=== PATIENT | male | born 1985 | race Hispanic/Latino ===

== ENCOUNTER 2018-05-14 17:24 | Inpatient (IN) | payer MEDICAID ==
[2018-05-14] MEDS ORDERED: Sodium Chloride 0.9% 1,000 ML IV STA ×2 (18:31)
--- NOTE | 2018-05-14 18:42 | ED PDOC ---
History of Present Illness History of Present Illness: 33 y/o male with a PMHx of HTN presents to the ED for evaluation of worsening flu-like symptoms, onset three weeks ago. Patient reports of becoming increasingly weak and vomiting for the past two weeks. Patient states he has been unable to keep down food or liquid. Patient reports despite not eating and drinking, he has had increased urination. Of note, patient reports of having a family history of DM. PMD: Manjinder Guan HPI: Influenza Time Seen by Provider: 05/14/18 18:04 Chief Complaint: GI Problem Chief Complaint (Provider): GI Problem History Per: Patient Onset/Duration Of Symptoms: Days Symptoms include: vomiting Past Medical History Reviewed: Historical Data, Nursing Documentation, Vital Signs Vital Signs: Last Vital Signs Temp 97.5 F L 05/14/18 17:32 Pulse 109 H 05/14/18 18:29 Resp 18 05/14/18 17:32 BP 136/84 05/14/18 18:29 Pulse Ox 95 05/14/18 17:32 - Medical History PMH: Anxiety, HTN, Hyperlipidemia - Surgical History Surgical History: No Surg Hx - Family History Family History: States: Diabetes - Home Medications Home Medications: Ambulatory Orders Medication Instructions Recorded Escitalopram [Lexapro] 20 mg PO DAILY 05/14/18 Lisinopril [Zestril] 20 mg PO DAILY 05/14/18 - Allergies Allergies/Adverse Reactions: Allergies Allergy/AdvReac Type Severity Reaction Status Date / Time No Known Allergies Allergy Verified 05/14/18 17:30 Review of Systems ROS Statement: Except As Marked, All Systems Reviewed And Found Negative Constitutional: Positive for: Weakness Gastrointestinal: Positive for: Vomiting Genitourinary Male: Positive for: Frequency Physical Exam - Reviewed Nursing Documentation Reviewed: Yes Vital Signs Reviewed: Yes - Physical Exam Appears: Negative for: Well (weak) Head Exam: Positive for: ATRAUMATIC, NORMOCEPHALIC Skin: Positive for: Diaphoresis Eye Exam: Positive for: Other (sunken eyes) ENT: Positive for: Other (moist mucous membranes) Neck: Positive for: Normal Gastrointestinal/Abdominal: Positive for: Soft, Tenderness (diffusely mild tenderness ) Extremity: Positive for: Normal ROM. Negative for: Deformity Neurological/Psych: Positive for: Awake, Alert Medical Decision Making Medical Decision Making: Time: 1830 A/P: Workup for new onset DM with dehydration vs. underlying infection. -- Labs including Beta Hydoxybutyrate and Hemoglobin A1C -- CXR and IV fluids ordered -- Consider insulin once labs result -- Reassess patient -- VBG -- EKG -- Beta Hydoxybutyrate -- CMP -- Hemoglobin A1C -- CBC with Differentials -- Sodium Chloride IV 0.9% 1000 mls/hr -- Sodium Chloride IV 0.9% 1000 mls/hr -- Influenza A B -- Urinalysis -- Finger stick of 500 noted at triage. Pt admitted for new onset DM with DKA. Pt given 2 L of fluid. Insulin bolus, started on insulin drip. Admitted to ICU. Scribe Attestation: Documented by Kirstie Rocha, acting as a scribe Tolu Mccartney MD. Provider Scribe Attestation: All medical record entries made by the Scribe were at my direction and person ally dictated by me. I have reviewed the chart and agree that the record accurately reflects my personal performance of the history, physical exam, medical decision making, and the department course for this patient. I have also personally directed, reviewed, and agree with the discharge instructions and disposition. - Laboratory Results Result Diagrams: 05/15/18 04:45 05/15/18 10:40 - ECG O2 Sat by Pulse Oximetry: 95 Disposition - Clinical Impression Clinical Impression: DKA (diabetic ketoacidoses), Diabetes mellitus, new onset - Disposition Disposition Time: 19:58 Condition: FAIR
[2018-05-14 18:46] LABS: VENOUS BLOOD GAS BASE EXCESS -2.9 mmol/L (0.0-2.0); VENOUS BLOOD GAS PCO2 33 mmHg (40-60); VENOUS BLOOD GAS PO2 49 mm/Hg (30-55); VENOUS BLOOD PH 7.41 (7.32-7.43)
[2018-05-14 18:47] LABS: BASO # 0.1 K/uL (0.0-0.2); BASO % 0.8 % (0.0-2.0); EOS % 0.3 % (0.0-4.0); HEMOGLOBIN 16.8 g/dL (12.0-18.0); LYMPH # 1.6 K/uL (1.0-4.3); LYMPH % 15.5 % (20.0-40.0); MEAN CELL VOLUME 79.5 fl (80.0-94.0); MEAN CORPUSCULAR HEMOGLOBIN 27.6 pg (27.0-31.0); MEAN CORPUSCULAR HGB CONC 34.8 g/dL (33.0-37.0); MONO # 0.7 K/uL (0.0-0.8); MONO % 7.2 % (0.0-10.0); NEUT # 7.9 K/uL (1.8-7.0); NEUT % 76.2 % (50.0-75.0); RBC 6.07 Mil/uL (4.40-5.90); RED CELL DISTRIBUTION WIDTH 13.3 % (11.5-14.5); WHITE BLOOD COUNT 10.4 K/uL (4.8-10.8)
[2018-05-14 19:15] LABS: ALB/GLOB RATIO 1.3 (1.0-2.1); ALBUMIN 5.1 g/dL (3.5-5.0); ALT/SGPT 69 U/L (21-72); AST/SGOT 29 U/L (17-59); BLOOD UREA NITROGEN 17 mg/dl (9-20); CALCIUM 10.3 mg/dL (8.4-10.2); GFR NON-AFRICAN AMERICAN > 60
[2018-05-14] MEDS ORDERED: Insulin Regular 100 units/ml SC STA (19:17)
[2018-05-14] MEDS ORDERED: Dextrose 50% SYRINGE Inj (50 ml) IV PRN (19:25)
[2018-05-14] MEDS ORDERED: Glucagon Recombinant 1 mg Inj IM PRN (19:25)
--- NOTE | 2018-05-14 20:41 | CP.PCM.CON ---
History of Present Illness - History of Present Illness History of Present Illness: CC/Reason for HPI: DKA HPI: This is a 33 male with MHx significant for HTN and ?psoriasis who comes in with DKA. Patient states that he has no prior Dx of DM2, but states that for the past 2 weeks he has had polydipsia, polyuria, and nocturia. He also c/o some dry mouth. Denies any f/c/v/d. Denies CP/SOB. Does have some nausea. Patient also notes that he has some inflammation on b/l shins due to psoriasis. ROS: 14 systems reviewed, negative other than HPI MHx: HTN, ?psoriasis, ?GERD SHx: None Allergies: NKDA Medications: per med rec Family Hx: Extensive Hx of DM2 within family, HLD Past Patient History - Past Social History Smoking Status: Smoker Currrent Status Unknown - CARDIAC Hx Hypertension: Yes - PSYCHIATRIC Hx Anxiety: Yes Meds Allergies/Adverse Reactions: Allergies Allergy/AdvReac Type Severity Reaction Status Date / Time No Known Allergies Allergy Verified 05/14/18 17:30 - Medications Medications: Current Medications Dextrose (Dextrose 50% Inj) 0 ml IV STAT PRN; Protocol PRN Reason: Hypoglycemia Protocol Dextrose (Glutose 15) 0 gm PO ONCE PRN; Protocol PRN Reason: Hypoglycemia Protocol Enoxaparin Sodium (Lovenox) 40 mg SC DAILY DEION; Protocol Glucagon (Glucagen Diagnostic Kit) 0 mg IM STAT PRN; Protocol PRN Reason: Hypoglycemia Protocol Insulin Human Regular 100 (units/ Sodium Chloride) 101 mls @ 10.1 mls/hr IV .Q10H DEION; Protocol Lactated Ringer's (Lactated Ringer's) 1,000 mls @ 200 mls/hr IV .Q5H DEION Stop: 05/15/18 05:59 Physical Exam - Constitutional Appears: No Acute Distress - Head Exam Head Exam: ATRAUMATIC, NORMOCEPHALIC - Eye Exam Eye Exam: EOMI - ENT Exam ENT Exam: Mucous Membranes Dry - Neck Exam Neck exam: Positive for: Full Rom - Respiratory Exam Respiratory Exam: Clear to Auscultation Bilateral, NORMAL BREATHING PATTERN - Cardiovascular Exam Cardiovascular Exam: Tachycardia, +S1, +S2 - GI/Abdominal Exam GI & Abdominal Exam: Normal Bowel Sounds, Soft - Extremities Exam Extremities exam: Positive for: full ROM, normal inspection - Neurological Exam Neurological exam: Alert, CN II-XII Intact, Oriented x3 - Skin Additional comments: b/l landers psoriatic plaques Results - Vital Signs Recent Vital Signs: Last Vital Signs Temp 97.5 F L 05/14/18 17:32 Pulse 117 H 05/14/18 19:46 Resp 16 05/14/18 19:46 BP 150/101 H 05/14/18 19:46 Pulse Ox 96 05/14/18 19:46 - Labs Result Diagrams: 05/14/18 18:25 05/14/18 18:25 Labs: Laboratory Results - last 24 hr 05/14/18 05/14/18 05/14/18 17:48 18:25 18:25 WBC 10.4 RBC 6.07 H Hgb 16.8 Hct 48.3 MCV 79.5 L MCH 27.6 MCHC 34.8 RDW 13.3 Plt Count 278 MPV 11.0 Neut % (Auto) 76.2 H Lymph % (Auto) 15.5 L [place] % (Auto) 7.2 Eos % (Auto) 0.3 Baso % (Auto) 0.8 Neut # (Auto) 7.9 H Lymph # (Auto) 1.6 [place] # (Auto) 0.7 Eos # (Auto) 0.0 Baso # (Auto) 0.1 pO2 VBG pH VBG pCO2 VBG HCO3 VBG Total CO2 VBG O2 Sat (Calc) VBG Base Excess VBG Potassium Glucose Lactate FiO2 Crit Value Called To Crit Value Called By Crit Value Read Back Blood Gas Notified Time Sodium 134 Potassium 4.6 Chloride 91 L Carbon Dioxide 19 L Anion Gap 29 H BUN 17 Creatinine 1.1 Est GFR ( Amer) > 60 Est GFR (Non-Af Amer) > 60 POC Glucose (mg/dL) > 500 H* Random Glucose 628 H* Calcium 10.3 H Total Bilirubin 1.3 AST 29 ALT 69 Alkaline Phosphatase 169 H Total Protein 9.1 H Albumin 5.1 H Globulin 4.0 H Albumin/Globulin Ratio 1.3 Venous Blood Potassium Influenza Typ A,B (EIA) 05/14/18 05/14/18 05/14/18 18:25 18:37 20:05 WBC RBC Hgb Hct MCV MCH MCHC RDW Plt Count MPV Neut % (Auto) Lymph % (Auto) [place] % (Auto) Eos % (Auto) Baso % (Auto) Neut # (Auto) Lymph # (Auto) [place] # (Auto) Eos # (Auto) Baso # (Auto) pO2 49 VBG pH 7.41 VBG pCO2 33 L VBG HCO3 22.3 VBG Total CO2 21.9 L VBG O2 Sat (Calc) 91.3 H VBG Base Excess -2.9 L VBG Potassium 4.8 Glucose > 750 H* Lactate 3.0 H FiO2 21.0 Crit Value Called To jose Mccartney md Crit Value Called By Ani subramanian Crit Value Read Back Y Blood Gas Notified Time 184 Sodium 132.0 Potassium Chloride 90.0 L Carbon Dioxide Anion Gap BUN Creatinine Est GFR ( Amer) Est GFR (Non-Af Amer) POC Glucose (mg/dL) 486 H* Random Glucose Calcium Total Bilirubin AST ALT Alkaline Phosphatase Total Protein Albumin Globulin Albumin/Globulin Ratio Venous Blood Potassium 4.8 Influenza Typ A,B (EIA) Negative for flu a/b Assessment & Plan (1) DKA (diabetic ketoacidoses) Assessment and Plan: 33 y/o male with new onset DM2 and DKA. -Admit to ICU for insulin gtt -Q1H accuchecks -BMP at 10 PM, next at 4 AM -A1C in AM -insulin gtt -IVF 200 cc/hr (LR for now) Status: Acute (2) Diabetes mellitus, new onset Status: Acute (3) HTN (hypertension) Assessment and Plan: Stable, continue home BP medications Status: Acute (4) Psoriasis Assessment and Plan: b/l landers psoriasis -moderate potency steroid to start with bid Status: Acute (5) DVT prophylaxis Assessment and Plan: SQ Lovenox Status: Acute
[2018-05-14 21:17] LABS: URINE BILIRUBIN NEGATIVE (NEGATIVE); URINE BLOOD NEGATIVE (NEGATIVE); URINE CLARITY CLEAR (Clear); URINE COLOR YELLOW (YELLOW); URINE GLUCOSE (UA) >=500 mg/dL (NEGATIVE); URINE LEUKOCYTE ESTERASE NEG Leu/uL (Negative); URINE PROTEIN 30 mg/dL (NEGATIVE); URINE UROBILINOGEN 0.2-1.0 mg/dL (0.2-1.0)
[2018-05-14] MEDS: Lactated Ringer's 1,000 ML IV SCH (21:54)
[2018-05-14 22:48] LABS: BLOOD UREA NITROGEN 14 mg/dl (9-20); CALCIUM 9.7 mg/dL (8.4-10.2); GFR NON-AFRICAN AMERICAN > 60
[2018-05-15] MEDS: Lactated Ringer's 1,000 ML IV SCH (02:05)
[2018-05-15 05:25] LABS: HEMOGLOBIN 14.7 g/dL (12.0-18.0); MEAN CELL VOLUME 79.6 fl (80.0-94.0); MEAN CORPUSCULAR HEMOGLOBIN 27.3 pg (27.0-31.0); MEAN CORPUSCULAR HGB CONC 34.3 g/dL (33.0-37.0); RBC 5.37 Mil/uL (4.40-5.90); RED CELL DISTRIBUTION WIDTH 13.8 % (11.5-14.5); WHITE BLOOD COUNT 11.2 K/uL (4.8-10.8)
[2018-05-15 05:38] LABS: ALB/GLOB RATIO 1.3 (1.0-2.1); ALBUMIN 4.2 g/dL (3.5-5.0); ALT/SGPT 51 U/L (21-72); AST/SGOT 25 U/L (17-59); BLOOD UREA NITROGEN 12 mg/dl (9-20); CALCIUM 9.6 mg/dL (8.4-10.2); GFR NON-AFRICAN AMERICAN > 60
[2018-05-15] MEDS ORDERED: Potassium Chloride 20 mEq ER Tab PO ONE (06:25)
[2018-05-15] MEDS ORDERED: Lactated Ringer's 1,000 ML IV SCH (06:30)
[2018-05-15] MEDS ORDERED: Dextrose 5%/0.45% NS 1,000 ML IV SCH (07:00)
[2018-05-15] MEDS: Enoxaparin 40 mg Syringe SC SCH (08:09)
[2018-05-15] MEDS: Betamethasone Dip 0.05% 15 GM TUBE TOP SCH ×2 (09:00→17:07)
--- NOTE | 2018-05-15 09:03 | CARD ---
APPROVED REPORT Date of service: 05/14/2018 EKG Measurement Heart [id number] <Conclusion> Sinus tachycardia Left axis deviation Abnormal ECG
[2018-05-15 10:54] LABS: VENOUS BLOOD GAS BASE EXCESS 1.1 mmol/L (0.0-2.0); VENOUS BLOOD GAS PCO2 37 mmHg (40-60); VENOUS BLOOD GAS PO2 51 mm/Hg (30-55); VENOUS BLOOD PH 7.44 (7.32-7.43)
[2018-05-15 12:08] LABS: ALB/GLOB RATIO 1.2 (1.0-2.1); ALBUMIN 3.8 g/dL (3.5-5.0); ALT/SGPT 56 U/L (21-72); AST/SGOT 38 U/L (17-59); BLOOD UREA NITROGEN 14 mg/dl (9-20); CALCIUM 9.1 mg/dL (8.4-10.2); GFR NON-AFRICAN AMERICAN > 60
--- NOTE | 2018-05-15 13:04 | CP.CCUPN ---
CCU Subjective - Physician Review Events Since Last Encounter (Free Text): 05/15/18 12:45 The patient was Seen/interviewed and examined by me at the bedside during ICU round, Medical records reviewed and Management issues were discussed and formulated with the house staff. Events reviewed Patient is a 33 years old male with past medical history of hypertension, psoriasis, and GERD who was admitted to the intensive care unit last night for management of diabetic ketoacidosis This morning he is alert awake oriented x3, remains on insulin drip Comfortable, NAD Repeat labs showed that no anion gap pH and bicarb within normal limits Starting the patient in metformin 500 mg twice daily and moderate carbohydrate diet Continue IV fluid was potassium supplement Hemoglobin A1c ordered CCU Objective - Vital Signs / Intake & Output Vital Signs (Last 4 hours): Vital Signs Temp Pulse Resp BP Pulse Ox 05/15/18 12:00 98.3 F 88 17 121/75 97 05/15/18 10:00 90 14 137/71 97 Intake and Output (Last 8hrs): Intake & Output 05/14/18 05/15/18 05/15/18 22:59 06:59 14:59 Intake Total 1999 1630.8 1015 Output Total 600 350 100 Balance 1400 1280.8 915 Weight 270 lb 274 lb Intake: IV 1999 1630.8 1015 Output: Urine 600 350 100 Urine, Voided 600 350 100 Other: # Voids Urine, Voided 2 1 - Physical Exam Head: Positive for: Atraumatic Pupils: Positive for: PERRL Extroacular Muscles: Positive for: EOMI Conjunctiva: Positive for: Normal Mouth: Positive for: Moist Mucous Membranes Nose (Internal): Positive for: Normal Inspection Neck: Positive for: Normal Range of Motion, Trachea Midline. Negative for: Meningeal Signs, MIDLINE TENDERNESS, Paraspinal Tenderness, JVD, Lymphadenopathy, Bruit, Other Respiratory/Chest: Positive for: Clear to Auscultation, Good Air Exchange. Negative for: Respiratory Distress, Accessory Muscle Use, Rales, Rhonchi Cardiovascular: Positive for: Regular Rate and Rhythm, Normal S1, S2. Negative for: Murmurs Abdomen: Positive for: Normal Bowel Sounds. Negative for: Tenderness, Distention Neurological: Positive for: GCS=15, CN II-XII Intact, Speech Normal Psychiatric: Positive for: Alert, Oriented x 3, Normal Insight - Medications Active Medications: Active Medications Generic Name Dose Route Start Last Admin Trade Name Freq PRN Reason Stop Dose Admin Betamethasone Dipropionate 1 applic 05/15/18 09:00 Diprolene TOP BID DEION Dextrose 0 ml 05/14/18 19:25 Dextrose 50% Inj IV STAT PRN Hypoglycemia Protocol Protocol Dextrose 0 gm 05/14/18 19:25 Glutose 15 PO ONCE PRN Hypoglycemia Protocol Protocol Enoxaparin Sodium 40 mg 05/15/18 09:00 05/15/18 08:09 Lovenox SC 40 mg DAILY DEION Administration Protocol Glucagon 0 mg 05/14/18 19:25 Glucagen Diagnostic Kit IM STAT PRN Hypoglycemia Protocol Protocol Insulin Human Regular 100 101 mls @ 10.1 mls/hr 05/14/18 19:30 05/15/18 12:05 units/ Sodium Chloride IV 5 units/hr .Q10H DEION 5.05 mls/hr Titration Protocol 10 UNITS/HR Potassium Chloride/Sodium Chloride 1,000 mls @ 100 mls/hr 05/15/18 12:30 Potassium Chl 20 Meq In Ns IV 05/16/18 12:28 .Q10H DEION Metformin HCl 500 mg 05/15/18 17:00 Glucophage PO BIDWM DEION - Patient Studies Lab Studies: Lab Studies 05/15/18 05/15/18 05/15/18 Range/Units 10:40 10:29 06:56 WBC (4.8-10.8) K/uL RBC (4.40-5.90) Mil/uL Hgb (12.0-18.0) g/dL Hct (35.0-51.0) % MCV (80.0-94.0) fl MCH (27.0-31.0) pg MCHC (33.0-37.0) g/dL RDW (11.5-14.5) % Plt Count (130-400) K/uL MPV (7.2-11.7) fl Neut % (Auto) (50.0-75.0) % Lymph % (Auto) (20.0-40.0) % [place] % (Auto) (0.0-10.0) % Eos % (Auto) (0.0-4.0) % Baso % (Auto) (0.0-2.0) % Neut # (Auto) (1.8-7.0) K/uL Lymph # (Auto) (1.0-4.3) K/uL [place] # (Auto) (0.0-0.8) K/uL Eos # (Auto) (0.0-0.7) K/uL Baso # (Auto) (0.0-0.2) K/uL pO2 51 (30-55) mm/Hg VBG pH 7.44 H (7.32-7.43) VBG pCO2 37 L (40-60) mmHg VBG HCO3 25.5 mmol/L VBG Total CO2 26.2 (22-28) mmol/L VBG O2 Sat (Calc) 92.0 H (40-65) % VBG Base Excess 1.1 (0.0-2.0) mmol/L VBG Potassium 3.6 (3.6-5.2) mmol/L Glucose 348 H (75-110) mg/dL Lactate 1.2 (0.7-2.1) mmol/L FiO2 21.0 % Crit Value Called To Crit Value Called By Crit Value Read Back Blood Gas Notified Time Sodium 137 137.0 (132-148) mmol/l Potassium 3.6 (3.6-5.0) MMOL/L Chloride 104 104.0 (98-107) mmol/L Carbon Dioxide 24 (22-30) mmol/L Anion Gap 13 (10-20) BUN 14 (9-20) mg/dl Creatinine 0.8 (0.8-1.5) mg/dl Est GFR ( Amer) > 60 Est GFR (Non-Af Amer) > 60 POC Glucose (mg/dL) 195 H (65-110) mg/dL Random Glucose 333 H (75-110) mg/dL Calcium 9.1 (8.4-10.2) mg/dL Phosphorus 3.1 (2.5-4.5) mg/dl Magnesium 2.1 (1.6-2.3) MG/DL Total Bilirubin 0.8 (0.2-1.3) mg/dl AST 38 (17-59) U/L ALT 56 (21-72) U/L Alkaline Phosphatase 87 (38-126) U/L Total Protein 6.9 (6.3-8.2) G/DL Albumin 3.8 (3.5-5.0) g/dL Globulin 3.1 (2.2-3.9) gm/dL Albumin/Globulin Ratio 1.2 (1.0-2.1) Venous Blood Potassium 3.6 (3.6-5.2) mmol/L Urine Color (YELLOW) Urine Clarity (Clear) Urine pH (5.0-8.0) Ur Specific [place] (1.003-1.030) Urine Protein (NEGATIVE) mg/dL Urine Glucose (UA) (NEGATIVE) mg/dL Urine Ketones (NEGATIVE) mg/dL Urine Blood (NEGATIVE) Urine Nitrate (NEGATIVE) Urine Bilirubin (NEGATIVE) Urine Urobilinogen (0.2-1.0) mg/dL Ur Leukocyte Esterase (Negative) Walter/uL Urine RBC (Auto) (0-3) /hpf Urine Microscopic WBC (0-5) /hpf Influenza Typ A,B (EIA) (NEGATIVE) 05/15/18 05/15/18 05/15/18 Range/Units 06:04 05:01 04:45 WBC (4.8-10.8) K/uL RBC (4.40-5.90) Mil/uL Hgb (12.0-18.0) g/dL Hct (35.0-51.0) % MCV (80.0-94.0) fl MCH (27.0-31.0) pg MCHC (33.0-37.0) g/dL RDW (11.5-14.5) % Plt Count (130-400) K/uL MPV (7.2-11.7) fl Neut % (Auto) (50.0-75.0) % Lymph % (Auto) (20.0-40.0) % [place] % (Auto) (0.0-10.0) % Eos % (Auto) (0.0-4.0) % Baso % (Auto) (0.0-2.0) % Neut # (Auto) (1.8-7.0) K/uL Lymph # (Auto) (1.0-4.3) K/uL [place] # (Auto) (0.0-0.8) K/uL Eos # (Auto) (0.0-0.7) K/uL Baso # (Auto) (0.0-0.2) K/uL pO2 (30-55) mm/Hg VBG pH (7.32-7.43) VBG pCO2 (40-60) mmHg VBG HCO3 mmol/L VBG Total CO2 (22-28) mmol/L VBG O2 Sat (Calc) (40-65) % VBG Base Excess (0.0-2.0) mmol/L VBG Potassium (3.6-5.2) mmol/L Glucose (75-110) mg/dL Lactate (0.7-2.1) mmol/L FiO2 % Crit Value Called To Crit Value Called By Crit Value Read Back Blood Gas Notified Time Sodium 140 (132-148) mmol/l Potassium 3.4 L (3.6-5.0) MMOL/L Chloride 105 (98-107) mmol/L Carbon Dioxide 26 (22-30) mmol/L Anion Gap 12 (10-20) BUN 12 (9-20) mg/dl Creatinine 0.9 (0.8-1.5) mg/dl Est GFR ( Amer) > 60 Est GFR (Non-Af Amer) > 60 POC Glucose (mg/dL) 210 H 194 H (65-110) mg/dL Random Glucose 204 H (75-110) mg/dL Calcium 9.6 (8.4-10.2) mg/dL Phosphorus (2.5-4.5) mg/dl Magnesium (1.6-2.3) MG/DL Total Bilirubin 0.8 (0.2-1.3) mg/dl AST 25 (17-59) U/L ALT 51 (21-72) U/L Alkaline Phosphatase 95 (38-126) U/L Total Protein 7.4 (6.3-8.2) G/DL Albumin 4.2 (3.5-5.0) g/dL Globulin 3.3 (2.2-3.9) gm/dL Albumin/Globulin Ratio 1.3 (1.0-2.1) Venous Blood Potassium (3.6-5.2) mmol/L Urine Color (YELLOW) Urine Clarity (Clear) Urine pH (5.0-8.0) Ur Specific [place] (1.003-1.030) Urine Protein (NEGATIVE) mg/dL Urine Glucose (UA) (NEGATIVE) mg/dL Urine Ketones (NEGATIVE) mg/dL Urine Blood (NEGATIVE) Urine Nitrate (NEGATIVE) Urine Bilirubin (NEGATIVE) Urine Urobilinogen (0.2-1.0) mg/dL Ur Leukocyte Esterase (Negative) Walter/uL Urine RBC (Auto) (0-3) /hpf Urine Microscopic WBC (0-5) /hpf Influenza Typ A,B (EIA) (NEGATIVE) 05/15/18 05/15/18 05/15/18 Range/Units 04:45 04:12 03:04 WBC 11.2 H (4.8-10.8) K/uL RBC 5.37 (4.40-5.90) Mil/uL Hgb 14.7 D (12.0-18.0) g/dL Hct 42.7 (35.0-51.0) % MCV 79.6 L (80.0-94.0) fl MCH 27.3 (27.0-31.0) pg MCHC 34.3 (33.0-37.0) g/dL RDW 13.8 (11.5-14.5) % Plt Count 252 (130-400) K/uL MPV (7.2-11.7) fl Neut % (Auto) (50.0-75.0) % Lymph % (Auto) (20.0-40.0) % [place] % (Auto) (0.0-10.0) % Eos % (Auto) (0.0-4.0) % Baso % (Auto) (0.0-2.0) % Neut # (Auto) (1.8-7.0) K/uL Lymph # (Auto) (1.0-4.3) K/uL [place] # (Auto) (0.0-0.8) K/uL Eos # (Auto) (0.0-0.7) K/uL Baso # (Auto) (0.0-0.2) K/uL pO2 (30-55) mm/Hg VBG pH (7.32-7.43) VBG pCO2 (40-60) mmHg VBG HCO3 mmol/L VBG Total CO2 (22-28) mmol/L VBG O2 Sat (Calc) (40-65) % VBG Base Excess (0.0-2.0) mmol/L VBG Potassium (3.6-5.2) mmol/L Glucose (75-110) mg/dL Lactate (0.7-2.1) mmol/L FiO2 % Crit Value Called To Crit Value Called By Crit Value Read Back Blood Gas Notified Time Sodium (132-148) mmol/l Potassium (3.6-5.0) MMOL/L Chloride (98-107) mmol/L Carbon Dioxide (22-30) mmol/L Anion Gap (10-20) BUN (9-20) mg/dl Creatinine (0.8-1.5) mg/dl Est GFR ( Amer) Est GFR (Non-Af Amer) POC Glucose (mg/dL) 197 H 220 H (65-110) mg/dL Random Glucose (75-110) mg/dL Calcium (8.4-10.2) mg/dL Phosphorus (2.5-4.5) mg/dl Magnesium (1.6-2.3) MG/DL Total Bilirubin (0.2-1.3) mg/dl AST (17-59) U/L ALT (21-72) U/L Alkaline Phosphatase (38-126) U/L Total Protein (6.3-8.2) G/DL Albumin (3.5-5.0) g/dL Globulin (2.2-3.9) gm/dL Albumin/Globulin Ratio (1.0-2.1) Venous Blood Potassium (3.6-5.2) mmol/L Urine Color (YELLOW) Urine Clarity (Clear) Urine pH (5.0-8.0) Ur Specific [place] (1.003-1.030) Urine Protein (NEGATIVE) mg/dL Urine Glucose (UA) (NEGATIVE) mg/dL Urine Ketones (NEGATIVE) mg/dL Urine Blood (NEGATIVE) Urine Nitrate (NEGATIVE) Urine Bilirubin (NEGATIVE) Urine Urobilinogen (0.2-1.0) mg/dL Ur Leukocyte Esterase (Negative) Walter/uL Urine RBC (Auto) (0-3) /hpf Urine Microscopic WBC (0-5) /hpf Influenza Typ A,B (EIA) (NEGATIVE) 05/15/18 05/15/18 05/14/18 Range/Units 02:02 01:05 23:58 WBC (4.8-10.8) K/uL RBC (4.40-5.90) Mil/uL Hgb (12.0-18.0) g/dL Hct (35.0-51.0) % MCV (80.0-94.0) fl MCH (27.0-31.0) pg MCHC (33.0-37.0) g/dL RDW (11.5-14.5) % Plt Count (130-400) K/uL MPV (7.2-11.7) fl Neut % (Auto) (50.0-75.0) % Lymph % (Auto) (20.0-40.0) % [place] % (Auto) (0.0-10.0) % Eos % (Auto) (0.0-4.0) % Baso % (Auto) (0.0-2.0) % Neut # (Auto) (1.8-7.0) K/uL Lymph # (Auto) (1.0-4.3) K/uL [place] # (Auto) (0.0-0.8) K/uL Eos # (Auto) (0.0-0.7) K/uL Baso # (Auto) (0.0-0.2) K/uL pO2 (30-55) mm/Hg VBG pH (7.32-7.43) VBG pCO2 (40-60) mmHg VBG HCO3 mmol/L VBG Total CO2 (22-28) mmol/L VBG O2 Sat (Calc) (40-65) % VBG Base Excess (0.0-2.0) mmol/L VBG Potassium (3.6-5.2) mmol/L Glucose (75-110) mg/dL Lactate (0.7-2.1) mmol/L FiO2 % Crit Value Called To Crit Value Called By Crit Value Read Back Blood Gas Notified Time Sodium (132-148) mmol/l Potassium (3.6-5.0) MMOL/L Chloride (98-107) mmol/L Carbon Dioxide (22-30) mmol/L Anion Gap (10-20) BUN (9-20) mg/dl Creatinine (0.8-1.5) mg/dl Est GFR ( Amer) Est GFR (Non-Af Amer) POC Glucose (mg/dL) 228 H 255 H 283 H (65-110) mg/dL Random Glucose (75-110) mg/dL Calcium (8.4-10.2) mg/dL Phosphorus (2.5-4.5) mg/dl Magnesium (1.6-2.3) MG/DL Total Bilirubin (0.2-1.3) mg/dl AST (17-59) U/L ALT (21-72) U/L Alkaline Phosphatase (38-126) U/L Total Protein (6.3-8.2) G/DL Albumin (3.5-5.0) g/dL Globulin (2.2-3.9) gm/dL Albumin/Globulin Ratio (1.0-2.1) Venous Blood Potassium (3.6-5.2) mmol/L Urine Color (YELLOW) Urine Clarity (Clear) Urine pH (5.0-8.0) Ur Specific [place] (1.003-1.030) Urine Protein (NEGATIVE) mg/dL Urine Glucose (UA) (NEGATIVE) mg/dL Urine Ketones (NEGATIVE) mg/dL Urine Blood (NEGATIVE) Urine Nitrate (NEGATIVE) Urine Bilirubin (NEGATIVE) Urine Urobilinogen (0.2-1.0) mg/dL Ur Leukocyte Esterase (Negative) Walter/uL Urine RBC (Auto) (0-3) /hpf Urine Microscopic WBC (0-5) /hpf Influenza Typ A,B (EIA) (NEGATIVE) 05/14/18 05/14/18 05/14/18 Range/Units 23:03 22:07 22:00 WBC (4.8-10.8) K/uL RBC (4.40-5.90) Mil/uL Hgb (12.0-18.0) g/dL Hct (35.0-51.0) % MCV (80.0-94.0) fl MCH (27.0-31.0) pg MCHC (33.0-37.0) g/dL RDW (11.5-14.5) % Plt Count (130-400) K/uL MPV (7.2-11.7) fl Neut % (Auto) (50.0-75.0) % Lymph % (Auto) (20.0-40.0) % [place] % (Auto) (0.0-10.0) % Eos % (Auto) (0.0-4.0) % Baso % (Auto) (0.0-2.0) % Neut # (Auto) (1.8-7.0) K/uL Lymph # (Auto) (1.0-4.3) K/uL [place] # (Auto) (0.0-0.8) K/uL Eos # (Auto) (0.0-0.7) K/uL Baso # (Auto) (0.0-0.2) K/uL pO2 (30-55) mm/Hg VBG pH (7.32-7.43) VBG pCO2 (40-60) mmHg VBG HCO3 mmol/L VBG Total CO2 (22-28) mmol/L VBG O2 Sat (Calc) (40-65) % VBG Base Excess (0.0-2.0) mmol/L VBG Potassium (3.6-5.2) mmol/L Glucose (75-110) mg/dL Lactate (0.7-2.1) mmol/L FiO2 % Crit Value Called To Crit Value Called By Crit Value Read Back Blood Gas Notified Time Sodium 136 (132-148) mmol/l Potassium 4.3 (3.6-5.0) MMOL/L Chloride 101 (98-107) mmol/L Carbon Dioxide 19 L (22-30) mmol/L Anion Gap 20 (10-20) BUN 14 (9-20) mg/dl Creatinine 0.9 (0.8-1.5) mg/dl Est GFR ( Amer) > 60 Est GFR (Non-Af Amer) > 60 POC Glucose (mg/dL) 300 H 394 H (65-110) mg/dL Random Glucose 384 H (75-110) mg/dL Calcium 9.7 (8.4-10.2) mg/dL Phosphorus (2.5-4.5) mg/dl Magnesium (1.6-2.3) MG/DL Total Bilirubin (0.2-1.3) mg/dl AST (17-59) U/L ALT (21-72) U/L Alkaline Phosphatase (38-126) U/L Total Protein (6.3-8.2) G/DL Albumin (3.5-5.0) g/dL Globulin (2.2-3.9) gm/dL Albumin/Globulin Ratio (1.0-2.1) Venous Blood Potassium (3.6-5.2) mmol/L Urine Color (YELLOW) Urine Clarity (Clear) Urine pH (5.0-8.0) Ur Specific [place] (1.003-1.030) Urine Protein (NEGATIVE) mg/dL Urine Glucose (UA) (NEGATIVE) mg/dL Urine Ketones (NEGATIVE) mg/dL Urine Blood (NEGATIVE) Urine Nitrate (NEGATIVE) Urine Bilirubin (NEGATIVE) Urine Urobilinogen (0.2-1.0) mg/dL Ur Leukocyte Esterase (Negative) Walter/uL Urine RBC (Auto) (0-3) /hpf Urine Microscopic WBC (0-5) /hpf Influenza Typ A,B (EIA) (NEGATIVE) 05/14/18 05/14/18 05/14/18 Range/Units 21:01 20:40 20:05 WBC (4.8-10.8) K/uL RBC (4.40-5.90) Mil/uL Hgb (12.0-18.0) g/dL Hct (35.0-51.0) % MCV (80.0-94.0) fl MCH (27.0-31.0) pg MCHC (33.0-37.0) g/dL RDW (11.5-14.5) % Plt Count (130-400) K/uL MPV (7.2-11.7) fl Neut % (Auto) (50.0-75.0) % Lymph % (Auto) (20.0-40.0) % [place] % (Auto) (0.0-10.0) % Eos % (Auto) (0.0-4.0) % Baso % (Auto) (0.0-2.0) % Neut # (Auto) (1.8-7.0) K/uL Lymph # (Auto) (1.0-4.3) K/uL [place] # (Auto) (0.0-0.8) K/uL Eos # (Auto) (0.0-0.7) K/uL Baso # (Auto) (0.0-0.2) K/uL pO2 (30-55) mm/Hg VBG pH (7.32-7.43) VBG pCO2 (40-60) mmHg VBG HCO3 mmol/L VBG Total CO2 (22-28) mmol/L VBG O2 Sat (Calc) (40-65) % VBG Base Excess (0.0-2.0) mmol/L VBG Potassium (3.6-5.2) mmol/L Glucose (75-110) mg/dL Lactate (0.7-2.1) mmol/L FiO2 % Crit Value Called To Crit Value Called By Crit Value Read Back Blood Gas Notified Time Sodium (132-148) mmol/l Potassium (3.6-5.0) MMOL/L Chloride (98-107) mmol/L Carbon Dioxide (22-30) mmol/L Anion Gap (10-20) BUN (9-20) mg/dl Creatinine (0.8-1.5) mg/dl Est GFR ( Amer) Est GFR (Non-Af Amer) POC Glucose (mg/dL) 450 H* 486 H* (65-110) mg/dL Random Glucose (75-110) mg/dL Calcium (8.4-10.2) mg/dL Phosphorus (2.5-4.5) mg/dl Magnesium (1.6-2.3) MG/DL Total Bilirubin (0.2-1.3) mg/dl AST (17-59) U/L ALT (21-72) U/L Alkaline Phosphatase (38-126) U/L Total Protein (6.3-8.2) G/DL Albumin (3.5-5.0) g/dL Globulin (2.2-3.9) gm/dL Albumin/Globulin Ratio (1.0-2.1) Venous Blood Potassium (3.6-5.2) mmol/L Urine Color Yellow (YELLOW) Urine Clarity Clear (Clear) Urine pH 6.0 (5.0-8.0) Ur Specific [place] 1.033 H (1.003-1.030) Urine Protein 30 (NEGATIVE) mg/dL Urine Glucose (UA) >=500 (NEGATIVE) mg/dL Urine Ketones 80 (NEGATIVE) mg/dL Urine Blood Negative (NEGATIVE) Urine Nitrate Negative (NEGATIVE) Urine Bilirubin Negative (NEGATIVE) Urine Urobilinogen 0.2-1.0 (0.2-1.0) mg/dL Ur Leukocyte Esterase Neg (Negative) Walter/uL Urine RBC (Auto) 4 H (0-3) /hpf Urine Microscopic WBC < 1 (0-5) /hpf Influenza Typ A,B (EIA) (NEGATIVE) 05/14/18 05/14/18 05/14/18 Range/Units 18:37 18:25 18:25 WBC 10.4 (4.8-10.8) K/uL RBC 6.07 H (4.40-5.90) Mil/uL Hgb 16.8 (12.0-18.0) g/dL Hct 48.3 (35.0-51.0) % MCV 79.5 L (80.0-94.0) fl MCH 27.6 (27.0-31.0) pg MCHC 34.8 (33.0-37.0) g/dL RDW 13.3 (11.5-14.5) % Plt Count 278 (130-400) K/uL MPV 11.0 (7.2-11.7) fl Neut % (Auto) 76.2 H (50.0-75.0) % Lymph % (Auto) 15.5 L (20.0-40.0) % [place] % (Auto) 7.2 (0.0-10.0) % Eos % (Auto) 0.3 (0.0-4.0) % Baso % (Auto) 0.8 (0.0-2.0) % Neut # (Auto) 7.9 H (1.8-7.0) K/uL Lymph # (Auto) 1.6 (1.0-4.3) K/uL [place] # (Auto) 0.7 (0.0-0.8) K/uL Eos # (Auto) 0.0 (0.0-0.7) K/uL Baso # (Auto) 0.1 (0.0-0.2) K/uL pO2 49 (30-55) mm/Hg VBG pH 7.41 (7.32-7.43) VBG pCO2 33 L (40-60) mmHg VBG HCO3 22.3 mmol/L VBG Total CO2 21.9 L (22-28) mmol/L VBG O2 Sat (Calc) 91.3 H (40-65) % VBG Base Excess -2.9 L (0.0-2.0) mmol/L VBG Potassium 4.8 (3.6-5.2) mmol/L Glucose > 750 H* (75-110) mg/dL Lactate 3.0 H (0.7-2.1) mmol/L FiO2 21.0 % Crit Value Called To jose Mccartney md Crit Value Called By Ani subramanian Crit Value Read Back Y Blood Gas Notified Time 1846 Sodium 132.0 (132-148) mmol/l Potassium (3.6-5.0) MMOL/L Chloride 90.0 L (98-107) mmol/L Carbon Dioxide (22-30) mmol/L Anion Gap (10-20) BUN (9-20) mg/dl Creatinine (0.8-1.5) mg/dl Est GFR ( Amer) Est GFR (Non-Af Amer) POC Glucose (mg/dL) (65-110) mg/dL Random Glucose (75-110) mg/dL Calcium (8.4-10.2) mg/dL Phosphorus (2.5-4.5) mg/dl Magnesium (1.6-2.3) MG/DL Total Bilirubin (0.2-1.3) mg/dl AST (17-59) U/L ALT (21-72) U/L Alkaline Phosphatase (38-126) U/L Total Protein (6.3-8.2) G/DL Albumin (3.5-5.0) g/dL Globulin (2.2-3.9) gm/dL Albumin/Globulin Ratio (1.0-2.1) Venous Blood Potassium 4.8 (3.6-5.2) mmol/L Urine Color (YELLOW) Urine Clarity (Clear) Urine pH (5.0-8.0) Ur Specific [place] (1.003-1.030) Urine Protein (NEGATIVE) mg/dL Urine Glucose (UA) (NEGATIVE) mg/dL Urine Ketones (NEGATIVE) mg/dL Urine Blood (NEGATIVE) Urine Nitrate (NEGATIVE) Urine Bilirubin (NEGATIVE) Urine Urobilinogen (0.2-1.0) mg/dL Ur Leukocyte Esterase (Negative) Walter/uL Urine RBC (Auto) (0-3) /hpf Urine Microscopic WBC (0-5) /hpf Influenza Typ A,B (EIA) Negative for flu a/b (NEGATIVE) 03/11/19 03/11/19 Range/Units 18:25 17:48 WBC (4.8-10.8) K/uL RBC (4.40-5.90) Mil/uL Hgb (12.0-18.0) g/dL Hct (35.0-51.0) % MCV (80.0-94.0) fl MCH (27.0-31.0) pg MCHC (33.0-37.0) g/dL RDW (11.5-14.5) % Plt Count (130-400) K/uL MPV (7.2-11.7) fl Neut % (Auto) (50.0-75.0) % Lymph % (Auto) (20.0-40.0) % [place] % (Auto) (0.0-10.0) % Eos % (Auto) (0.0-4.0) % Baso % (Auto) (0.0-2.0) % Neut # (Auto) (1.8-7.0) K/uL Lymph # (Auto) (1.0-4.3) K/uL [place] # (Auto) (0.0-0.8) K/uL Eos # (Auto) (0.0-0.7) K/uL Baso # (Auto) (0.0-0.2) K/uL pO2 (30-55) mm/Hg VBG pH (7.32-7.43) VBG pCO2 (40-60) mmHg VBG HCO3 mmol/L VBG Total CO2 (22-28) mmol/L VBG O2 Sat (Calc) (40-65) % VBG Base Excess (0.0-2.0) mmol/L VBG Potassium (3.6-5.2) mmol/L Glucose (75-110) mg/dL Lactate (0.7-2.1) mmol/L FiO2 % Crit Value Called To Crit Value Called By Crit Value Read Back Blood Gas Notified Time Sodium 134 (132-148) mmol/l Potassium 4.6 (3.6-5.0) MMOL/L Chloride 91 L (98-107) mmol/L Carbon Dioxide 19 L (22-30) mmol/L Anion Gap 29 H (10-20) BUN 17 (9-20) mg/dl Creatinine 1.1 (0.8-1.5) mg/dl Est GFR ( Amer) > 60 Est GFR (Non-Af Amer) > 60 POC Glucose (mg/dL) > 500 H* (65-110) mg/dL Random Glucose 628 H* (75-110) mg/dL Calcium 10.3 H (8.4-10.2) mg/dL Phosphorus (2.5-4.5) mg/dl Magnesium (1.6-2.3) MG/DL Total Bilirubin 1.3 (0.2-1.3) mg/dl AST 29 (17-59) U/L ALT 69 (21-72) U/L Alkaline Phosphatase 169 H (38-126) U/L Total Protein 9.1 H (6.3-8.2) G/DL Albumin 5.1 H (3.5-5.0) g/dL Globulin 4.0 H (2.2-3.9) gm/dL Albumin/Globulin Ratio 1.3 (1.0-2.1) Venous Blood Potassium (3.6-5.2) mmol/L Urine Color (YELLOW) Urine Clarity (Clear) Urine pH (5.0-8.0) Ur Specific [place] (1.003-1.030) Urine Protein (NEGATIVE) mg/dL Urine Glucose (UA) (NEGATIVE) mg/dL Urine Ketones (NEGATIVE) mg/dL Urine Blood (NEGATIVE) Urine Nitrate (NEGATIVE) Urine Bilirubin (NEGATIVE) Urine Urobilinogen (0.2-1.0) mg/dL Ur Leukocyte Esterase (Negative) Walter/uL Urine RBC (Auto) (0-3) /hpf Urine Microscopic WBC (0-5) /hpf Influenza Typ A,B (EIA) (NEGATIVE) Laboratory Results - last 24 hr 05/14/18 05/14/18 05/14/18 17:48 18:25 18:25 WBC 10.4 RBC 6.07 H Hgb 16.8 Hct 48.3 MCV 79.5 L MCH 27.6 MCHC 34.8 RDW 13.3 Plt Count 278 MPV 11.0 Neut % (Auto) 76.2 H Lymph % (Auto) 15.5 L [place] % (Auto) 7.2 Eos % (Auto) 0.3 Baso % (Auto) 0.8 Neut # (Auto) 7.9 H Lymph # (Auto) 1.6 [place] # (Auto) 0.7 Eos # (Auto) 0.0 Baso # (Auto) 0.1 pO2 VBG pH VBG pCO2 VBG HCO3 VBG Total CO2 VBG O2 Sat (Calc) VBG Base Excess VBG Potassium Glucose Lactate FiO2 Crit Value Called To Crit Value Called By Crit Value Read Back Blood Gas Notified Time Sodium 134 Potassium 4.6 Chloride 91 L Carbon Dioxide 19 L Anion Gap 29 H BUN 17 Creatinine 1.1 Est GFR ( Amer) > 60 Est GFR (Non-Af Amer) > 60 POC Glucose (mg/dL) > 500 H* Random Glucose 628 H* Calcium 10.3 H Phosphorus Magnesium Total Bilirubin 1.3 AST 29 ALT 69 Alkaline Phosphatase 169 H Total Protein 9.1 H Albumin 5.1 H Globulin 4.0 H Albumin/Globulin Ratio 1.3 Venous Blood Potassium Urine Color Urine Clarity Urine pH Ur Specific [place] Urine Protein Urine Glucose (UA) Urine Ketones Urine Blood Urine Nitrate Urine Bilirubin Urine Urobilinogen Ur Leukocyte Esterase Urine RBC (Auto) Urine Microscopic WBC Influenza Typ A,B (EIA) 05/14/18 05/14/18 05/14/18 18:25 18:37 20:05 WBC RBC Hgb Hct MCV MCH MCHC RDW Plt Count MPV Neut % (Auto) Lymph % (Auto) [place] % (Auto) Eos % (Auto) Baso % (Auto) Neut # (Auto) Lymph # (Auto) [place] # (Auto) Eos # (Auto) Baso # (Auto) pO2 49 VBG pH 7.41 VBG pCO2 33 L VBG HCO3 22.3 VBG Total CO2 21.9 L VBG O2 Sat (Calc) 91.3 H VBG Base Excess -2.9 L VBG Potassium 4.8 Glucose > 750 H* Lactate 3.0 H FiO2 21.0 Crit Value Called To jose Mccartney md Crit Value Called By Ani subramanian Crit Value Read Back Y Blood Gas Notified Time 1846 Sodium 132.0 Potassium Chloride 90.0 L Carbon Dioxide Anion Gap BUN Creatinine Est GFR ( Amer) Est GFR (Non-Af Amer) POC Glucose (mg/dL) 486 H* Random Glucose Calcium Phosphorus Magnesium Total Bilirubin AST ALT Alkaline Phosphatase Total Protein Albumin Globulin Albumin/Globulin Ratio Venous Blood Potassium 4.8 Urine Color Urine Clarity Urine pH Ur Specific [place] Urine Protein Urine Glucose (UA) Urine Ketones Urine Blood Urine Nitrate Urine Bilirubin Urine Urobilinogen Ur Leukocyte Esterase Urine RBC (Auto) Urine Microscopic WBC Influenza Typ A,B (EIA) Negative for flu a/b 05/14/18 05/14/18 05/14/18 20:40 21:01 22:00 WBC RBC Hgb Hct MCV MCH MCHC RDW Plt Count MPV Neut % (Auto) Lymph % (Auto) [place] % (Auto) Eos % (Auto) Baso % (Auto) Neut # (Auto) Lymph # (Auto) [place] # (Auto) Eos # (Auto) Baso # (Auto) pO2 VBG pH VBG pCO2 VBG HCO3 VBG Total CO2 VBG O2 Sat (Calc) VBG Base Excess VBG Potassium Glucose Lactate FiO2 Crit Value Called To Crit Value Called By Crit Value Read Back Blood Gas Notified Time Sodium 136 Potassium 4.3 Chloride 101 Carbon Dioxide 19 L Anion Gap 20 BUN 14 Creatinine 0.9 Est GFR ( Amer) > 60 Est GFR (Non-Af Amer) > 60 POC Glucose (mg/dL) 450 H* Random Glucose 384 H Calcium 9.7 Phosphorus Magnesium Total Bilirubin AST ALT Alkaline Phosphatase Total Protein Albumin Globulin Albumin/Globulin Ratio Venous Blood Potassium Urine Color Yellow Urine Clarity Clear Urine pH 6.0 Ur Specific [place] 1.033 H Urine Protein 30 Urine Glucose (UA) >=500 Urine Ketones 80 Urine Blood Negative Urine Nitrate Negative Urine Bilirubin Negative Urine Urobilinogen 0.2-1.0 Ur Leukocyte Esterase Neg Urine RBC (Auto) 4 H Urine Microscopic WBC < 1 Influenza Typ A,B (EIA) 05/14/18 05/14/18 05/14/18 22:07 23:03 23:58 WBC RBC Hgb Hct MCV MCH MCHC RDW Plt Count MPV Neut % (Auto) Lymph % (Auto) [place] % (Auto) Eos % (Auto) Baso % (Auto) Neut # (Auto) Lymph # (Auto) [place] # (Auto) Eos # (Auto) Baso # (Auto) pO2 VBG pH VBG pCO2 VBG HCO3 VBG Total CO2 VBG O2 Sat (Calc) VBG Base Excess VBG Potassium Glucose Lactate FiO2 Crit Value Called To Crit Value Called By Crit Value Read Back Blood Gas Notified Time Sodium Potassium Chloride Carbon Dioxide Anion Gap BUN Creatinine Est GFR ( Amer) Est GFR (Non-Af Amer) POC Glucose (mg/dL) 394 H 300 H 283 H Random Glucose Calcium Phosphorus Magnesium Total Bilirubin AST ALT Alkaline Phosphatase Total Protein Albumin Globulin Albumin/Globulin Ratio Venous Blood Potassium Urine Color Urine Clarity Urine pH Ur Specific [place] Urine Protein Urine Glucose (UA) Urine Ketones Urine Blood Urine Nitrate Urine Bilirubin Urine Urobilinogen Ur Leukocyte Esterase Urine RBC (Auto) Urine Microscopic WBC Influenza Typ A,B (EIA) 05/15/18 05/15/18 05/15/18 01:05 02:02 03:04 WBC RBC Hgb Hct MCV MCH MCHC RDW Plt Count MPV Neut % (Auto) Lymph % (Auto) [place] % (Auto) Eos % (Auto) Baso % (Auto) Neut # (Auto) Lymph # (Auto) Cocke # (Auto) Eos # (Auto) Baso # (Auto) pO2 VBG pH VBG pCO2 VBG HCO3 VBG Total CO2 VBG O2 Sat (Calc) VBG Base Excess VBG Potassium Glucose Lactate FiO2 Crit Value Called To Crit Value Called By Crit Value Read Back Blood Gas Notified Time Sodium Potassium Chloride Carbon Dioxide Anion Gap BUN Creatinine Est GFR ( Amer) Est GFR (Non-Af Amer) POC Glucose (mg/dL) 255 H 228 H 220 H Random Glucose Calcium Phosphorus Magnesium Total Bilirubin AST ALT Alkaline Phosphatase Total Protein Albumin Globulin Albumin/Globulin Ratio Venous Blood Potassium Urine Color Urine Clarity Urine pH Ur Specific [place] Urine Protein Urine Glucose (UA) Urine Ketones Urine Blood Urine Nitrate Urine Bilirubin Urine Urobilinogen Ur Leukocyte Esterase Urine RBC (Auto) Urine Microscopic WBC Influenza Typ A,B (EIA) 05/15/18 05/15/18 05/15/18 04:12 04:45 04:45 WBC 11.2 H RBC 5.37 Hgb 14.7 D Hct 42.7 MCV 79.6 L MCH 27.3 MCHC 34.3 RDW 13.8 Plt Count 252 MPV Neut % (Auto) Lymph % (Auto) [place]ke % (Auto) Eos % (Auto) Baso % (Auto) Neut # (Auto) Lymph # (Auto) [place] # (Auto) Eos # (Auto) Baso # (Auto) pO2 VBG pH VBG pCO2 VBG HCO3 VBG Total CO2 VBG O2 Sat (Calc) VBG Base Excess VBG Potassium Glucose Lactate FiO2 Crit Value Called To Crit Value Called By Crit Value Read Back Blood Gas Notified Time Sodium 140 Potassium 3.4 L Chloride 105 Carbon Dioxide 26 Anion Gap 12 BUN 12 Creatinine 0.9 Est GFR ( Amer) > 60 Est GFR (Non-Af Amer) > 60 POC Glucose (mg/dL) 197 H Random Glucose 204 H Calcium 9.6 Phosphorus Magnesium Total Bilirubin 0.8 AST 25 ALT 51 Alkaline Phosphatase 95 Total Protein 7.4 Albumin 4.2 Globulin 3.3 Albumin/Globulin Ratio 1.3 Venous Blood Potassium Urine Color Urine Clarity Urine pH Ur Specific [place] Urine Protein Urine Glucose (UA) Urine Ketones Urine Blood Urine Nitrate Urine Bilirubin Urine Urobilinogen Ur Leukocyte Esterase Urine RBC (Auto) Urine Microscopic WBC Influenza Typ A,B (EIA) 05/15/18 05/15/18 05/15/18 05:01 06:04 06:56 WBC RBC Hgb Hct MCV MCH MCHC RDW Plt Count MPV Neut % (Auto) Lymph % (Auto) [place] % (Auto) Eos % (Auto) Baso % (Auto) Neut # (Auto) Lymph # (Auto) [place] # (Auto) Eos # (Auto) Baso # (Auto) pO2 VBG pH VBG pCO2 VBG HCO3 VBG Total CO2 VBG O2 Sat (Calc) VBG Base Excess VBG Potassium Glucose Lactate FiO2 Crit Value Called To Crit Value Called By Crit Value Read Back Blood Gas Notified Time Sodium Potassium Chloride Carbon Dioxide Anion Gap BUN Creatinine Est GFR ( Amer) Est GFR (Non-Af Amer) POC Glucose (mg/dL) 194 H 210 H 195 H Random Glucose Calcium Phosphorus Magnesium Total Bilirubin AST ALT Alkaline Phosphatase Total Protein Albumin Globulin Albumin/Globulin Ratio Venous Blood Potassium Urine Color Urine Clarity Urine pH Ur Specific [place] Urine Protein Urine Glucose (UA) Urine Ketones Urine Blood Urine Nitrate Urine Bilirubin Urine Urobilinogen Ur Leukocyte Esterase Urine RBC (Auto) Urine Microscopic WBC Influenza Typ A,B (EIA) 05/15/18 05/15/18 10:29 10:40 WBC RBC Hgb Hct MCV MCH MCHC RDW Plt Count MPV Neut % (Auto) Lymph % (Auto) [place] % (Auto) Eos % (Auto) Baso % (Auto) Neut # (Auto) Lymph # (Auto) [place] # (Auto) Eos # (Auto) Baso # (Auto) pO2 51 VBG pH 7.44 H VBG pCO2 37 L VBG HCO3 25.5 VBG Total CO2 26.2 VBG O2 Sat (Calc) 92.0 H VBG Base Excess 1.1 VBG Potassium 3.6 Glucose 348 H Lactate 1.2 FiO2 21.0 Crit Value Called To Crit Value Called By Crit Value Read Back Blood Gas Notified Time Sodium 137.0 137 Potassium 3.6 Chloride 104.0 104 Carbon Dioxide 24 Anion Gap 13 BUN 14 Creatinine 0.8 Est GFR ( Amer) > 60 Est GFR (Non-Af Amer) > 60 POC Glucose (mg/dL) Random Glucose 333 H Calcium 9.1 Phosphorus 3.1 Magnesium 2.1 Total Bilirubin 0.8 AST 38 ALT 56 Alkaline Phosphatase 87 Total Protein 6.9 Albumin 3.8 Globulin 3.1 Albumin/Globulin Ratio 1.2 Venous Blood Potassium 3.6 Urine Color Urine Clarity Urine pH Ur Specific [place] Urine Protein Urine Glucose (UA) Urine Ketones Urine Blood Urine Nitrate Urine Bilirubin Urine Urobilinogen Ur Leukocyte Esterase Urine RBC (Auto) Urine Microscopic WBC Influenza Typ A,B (EIA) EKG/Cardiology Studies: Cardiology / EKG Studies 05/14/18 18:05 EKG [ELECTROCARDIOGRAM] Stat Comment: Mode Of Transportation: Reason For Exam: chest pain Fingerstick Blood Sugar Results: 337 Review of Systems - Cardiovascular Cardiovascular: absent: Chest Pain, Chest Pain at Rest, Chest Pain with Activity, Claudication, Diaphoresis - Respiratory Respiratory: absent: Cough, Dyspnea, Hemoptysis, Dyspnea on Exertion, Wheezing, Snoring, Excessive Mucous Production - Gastrointestinal Gastrointestinal: absent: Abdominal Pain, Change in Bowel Habits, Dyspepsia, Dysphagia, Heartburn, Hematemesis, Hematochezia Critical Care Progress Note - Extremities/Vascular Does the Patient have a Central Venous Catheter?: No Does the Patient need a Central Venous Catheter?: No Does the Patient have a Rivero Catheter?: No Does the Patient need a Rivero Catheter?: No - Nutrition Nutrition: Nutrition Category Date Time Status Heart Healthy Diet [DIET] Diets 05/15/18 Lunch Active Assessment/Plan (1) DKA (diabetic ketoacidoses) Current Visit: Yes Status: Acute (2) DVT prophylaxis Current Visit: Yes Status: Acute (3) Diabetes mellitus, new onset Current Visit: Yes Status: Acute (4) HTN (hypertension) Current Visit: Yes Status: Acute (5) Psoriasis Current Visit: Yes Status: Acute
[2018-05-15] MEDS: Potassium Chl 20 mEq in NS 1,000 ML IV SCH (13:59)
[2018-05-16] MEDS: Potassium Chl 20 mEq in NS 1,000 ML IV SCH (01:23)
[2018-05-16 05:31] LABS: BLOOD UREA NITROGEN 11 mg/dl (9-20); CALCIUM 8.9 mg/dL (8.4-10.2); GFR NON-AFRICAN AMERICAN > 60
[2018-05-16 05:36] LABS: MEAN CELL VOLUME 80.8 fl (80.0-94.0); MEAN CORPUSCULAR HEMOGLOBIN 27.5 pg (27.0-31.0); RBC 5.1 Mil/uL (4.40-5.90); RED CELL DISTRIBUTION WIDTH 13.2 % (11.5-14.5)
--- NOTE | 2018-05-16 08:28 | CP.PCM.HP ---
History of Present Illness - History of Present Illness History of Present Illness: This is a 33 y/o male admitted for severe hyperglycemia and generalized weakness after having episodes of abdominal pain and vomiting for the past few days. Past Patient History - Past Medical History & Family History Past Medical History?: Yes - Past Social History Smoking Status: Current Some Days Smoker - CARDIAC Hx Hypertension: Yes - PULMONARY Hx Respiratory Disorders: No - NEUROLOGICAL Hx Neurological Disorder: No - HEENT Hx HEENT Problems: No - RENAL Hx Chronic Kidney Disease: No - ENDOCRINE/METABOLIC Hx Endocrine Disorders: Yes - HEMATOLOGICAL/ONCOLOGICAL Hx Blood Disorders: No - INTEGUMENTARY Hx Dermatological Problems: No - MUSCULOSKELETAL/RHEUMATOLOGICAL Hx Musculoskeletal Disorders: No - GASTROINTESTINAL Hx Gastrointestinal Disorders: Yes Hx Gastroesophageal Reflux: Yes - GENITOURINARY/GYNECOLOGICAL Hx Genitourinary Disorders: No - PSYCHIATRIC Hx Anxiety: Yes - SURGICAL HISTORY Hx Surgeries: No - ANESTHESIA Hx Anesthesia: No Hx Anesthesia Reactions: No Hx Malignant Hyperthermia: No Has any member of the family had a problem w/ anesthesia?: No Meds Allergies/Adverse Reactions: Allergies Allergy/AdvReac Type Severity Reaction Status Date / Time No Known Allergies Allergy Verified 05/14/18 17:30 Results - Vital Signs Recent Vital Signs: Last Vital Signs Temp 98.6 F 05/16/18 04:00 Pulse 82 05/16/18 06:00 Resp 17 05/16/18 06:00 BP 151/84 H 05/16/18 06:00 Pulse Ox 97 05/16/18 06:00 - Labs Result Diagrams: 05/16/18 04:12 05/16/18 04:12 Labs: Laboratory Results - last 24 hr 05/14/18 05/15/18 05/15/18 18:25 08:02 08:58 WBC RBC Hgb Hct MCV MCH MCHC RDW Plt Count pO2 VBG pH VBG pCO2 VBG HCO3 VBG Total CO2 VBG O2 Sat (Calc) VBG Base Excess VBG Potassium Sodium Chloride Glucose Lactate FiO2 Potassium Carbon Dioxide Anion Gap BUN Creatinine Est GFR ( Amer) Est GFR (Non-Af Amer) POC Glucose (mg/dL) 237 H 269 H Random Glucose Hemoglobin A1c Calcium Phosphorus Magnesium Total Bilirubin AST ALT Alkaline Phosphatase Total Protein Albumin Globulin Albumin/Globulin Ratio Venous Blood Potassium B-Hydroxybutyrate 4.03 H 05/15/18 05/15/18 05/15/18 09:53 10:29 10:40 WBC RBC Hgb Hct MCV MCH MCHC RDW Plt Count pO2 51 VBG pH 7.44 H VBG pCO2 37 L VBG HCO3 25.5 VBG Total CO2 26.2 VBG O2 Sat (Calc) 92.0 H VBG Base Excess 1.1 VBG Potassium 3.6 Sodium 137.0 Chloride 104.0 Glucose 348 H Lactate 1.2 FiO2 21.0 Potassium Carbon Dioxide Anion Gap BUN Creatinine Est GFR ( Amer) Est GFR (Non-Af Amer) POC Glucose (mg/dL) 300 H Random Glucose Hemoglobin A1c 10.4 H Calcium Phosphorus Magnesium Total Bilirubin AST ALT Alkaline Phosphatase Total Protein Albumin Globulin Albumin/Globulin Ratio Venous Blood Potassium 3.6 B-Hydroxybutyrate 05/15/18 05/15/18 05/15/18 10:40 11:13 12:02 WBC RBC Hgb Hct MCV MCH MCHC RDW Plt Count pO2 VBG pH VBG pCO2 VBG HCO3 VBG Total CO2 VBG O2 Sat (Calc) VBG Base Excess VBG Potassium Sodium 137 Chloride 104 Glucose Lactate FiO2 Potassium 3.6 Carbon Dioxide 24 Anion Gap 13 BUN 14 Creatinine 0.8 Est GFR ( Amer) > 60 Est GFR (Non-Af Amer) > 60 POC Glucose (mg/dL) 351 H 337 H Random Glucose 333 H Hemoglobin A1c Calcium 9.1 Phosphorus 3.1 Magnesium 2.1 Total Bilirubin 0.8 AST 38 ALT 56 Alkaline Phosphatase 87 Total Protein 6.9 Albumin 3.8 Globulin 3.1 Albumin/Globulin Ratio 1.2 Venous Blood Potassium B-Hydroxybutyrate 05/15/18 05/15/18 05/15/18 13:05 14:04 15:04 WBC RBC Hgb Hct MCV MCH MCHC RDW Plt Count pO2 VBG pH VBG pCO2 VBG HCO3 VBG Total CO2 VBG O2 Sat (Calc) VBG Base Excess VBG Potassium Sodium Chloride Glucose Lactate FiO2 Potassium Carbon Dioxide Anion Gap BUN Creatinine Est GFR ( Amer) Est GFR (Non-Af Amer) POC Glucose (mg/dL) 330 H 414 H* 410 H* Random Glucose Hemoglobin A1c Calcium Phosphorus Magnesium Total Bilirubin AST ALT Alkaline Phosphatase Total Protein Albumin Globulin Albumin/Globulin Ratio Venous Blood Potassium B-Hydroxybutyrate 05/15/18 05/15/18 05/15/18 16:01 17:01 17:59 WBC RBC Hgb Hct MCV MCH MCHC RDW Plt Count pO2 VBG pH VBG pCO2 VBG HCO3 VBG Total CO2 VBG O2 Sat (Calc) VBG Base Excess VBG Potassium Sodium Chloride Glucose Lactate FiO2 Potassium Carbon Dioxide Anion Gap BUN Creatinine Est GFR ( Amer) Est GFR (Non-Af Amer) POC Glucose (mg/dL) 361 H 306 H 309 H Random Glucose Hemoglobin A1c Calcium Phosphorus Magnesium Total Bilirubin AST ALT Alkaline Phosphatase Total Protein Albumin Globulin Albumin/Globulin Ratio Venous Blood Potassium B-Hydroxybutyrate 05/15/18 05/15/18 05/15/18 18:53 20:05 21:06 WBC RBC Hgb Hct MCV MCH MCHC RDW Plt Count pO2 VBG pH VBG pCO2 VBG HCO3 VBG Total CO2 VBG O2 Sat (Calc) VBG Base Excess VBG Potassium Sodium Chloride Glucose Lactate FiO2 Potassium Carbon Dioxide Anion Gap BUN Creatinine Est GFR ( Amer) Est GFR (Non-Af Amer) POC Glucose (mg/dL) 334 H 281 H 273 H Random Glucose Hemoglobin A1c Calcium Phosphorus Magnesium Total Bilirubin AST ALT Alkaline Phosphatase Total Protein Albumin Globulin Albumin/Globulin Ratio Venous Blood Potassium B-Hydroxybutyrate 05/15/18 05/15/18 05/16/18 22:16 23:17 00:28 WBC RBC Hgb Hct MCV MCH MCHC RDW Plt Count pO2 VBG pH VBG pCO2 VBG HCO3 VBG Total CO2 VBG O2 Sat (Calc) VBG Base Excess VBG Potassium Sodium Chloride Glucose Lactate FiO2 Potassium Carbon Dioxide Anion Gap BUN Creatinine Est GFR ( Amer) Est GFR (Non-Af Amer) POC Glucose (mg/dL) 263 H 234 H 235 H Random Glucose Hemoglobin A1c Calcium Phosphorus Magnesium Total Bilirubin AST ALT Alkaline Phosphatase Total Protein Albumin Globulin Albumin/Globulin Ratio Venous Blood Potassium B-Hydroxybutyrate 05/16/18 05/16/18 05/16/18 01:31 04:12 04:12 WBC 7.0 RBC 5.10 Hgb 14.0 Hct 41.2 MCV 80.8 MCH 27.5 MCHC 34.0 RDW 13.2 Plt Count 180 pO2 VBG pH VBG pCO2 VBG HCO3 VBG Total CO2 VBG O2 Sat (Calc) VBG Base Excess VBG Potassium Sodium 138 Chloride 106 Glucose Lactate FiO2 Potassium 3.3 L Carbon Dioxide 24 Anion Gap 11 BUN 11 Creatinine 0.7 L Est GFR ( Amer) > 60 Est GFR (Non-Af Amer) > 60 POC Glucose (mg/dL) 194 H Random Glucose 166 H Hemoglobin A1c Calcium 8.9 Phosphorus Magnesium Total Bilirubin AST ALT Alkaline Phosphatase Total Protein Albumin Globulin Albumin/Globulin Ratio Venous Blood Potassium B-Hydroxybutyrate
[2018-05-16] MEDS: Enoxaparin 40 mg Syringe SC SCH (08:42)
[2018-05-16] MEDS: Betamethasone Dip 0.05% 15 GM TUBE TOP SCH ×2 (10:33→16:59)
[2018-05-16] MEDS ORDERED: Insulin Regular 100 units/ml SC SCH (11:30)
[2018-05-16] MEDS: Insulin Regular 100 units/ml SC SCH ×3 (12:12→21:33)
--- NOTE | 2018-05-16 17:18 | PN ---
DATE: 05/16/2018 LOCATION: The patient is in ICU bed 433. TIME SPENT: 25 minutes. SUBJECTIVE: The patient is seen, evaluated at the bedside. Past medical, surgical, family, and social history reviewed. Case discussed this morning in ICU rounds with multidisciplinary team. A 33-year-old male with medical history significant for hypertension and psoriasis, admitted with hyperglycemia with DKA, on IV fluid and insulin drip. Overnight normotensive, afebrile. No nausea or vomiting. No abdominal pain or diarrhea. No dysuria. This morning, insulin drip is discontinued, started on metformin and Januvia along with Accu-Chek with regular insulin coverage. OBJECTIVE: VITAL SIGNS: Temperature 98.2, heart rate 82; regular, blood pressure 130/81, mean arterial pressure 97, respiratory rate of 13, and oxygen saturation 99%. Intake of 4329, output of 575, positive balance 3754, and weight 284 pounds. HEAD, EYES, EARS, NOSE AND THROAT: Pupils are reactive. Conjunctivae pink. Sclerae are white. NECK: Supple. Trachea is central. CHEST: Bilateral breath sounds. Clear to auscultation. HEART: Rhythm regular. S1 and S2, normal intensity. No S3, S4 gallop. No audible murmur. ABDOMEN: Bowel sounds are present and soft. Liver and spleen are not palpable. Bladder not distended. EXTREMITIES: No clubbing, cyanosis or edema. NEUROLOGIC: Nonfocal. LABORATORY DATA: WBC 7, hemoglobin 14, hematocrit 41.2, and platelet count 180. SMA-7: Sodium 138, potassium 3.3, chloride of 106, CO2 of 24, blood urea nitrogen 11, creatinine 0.7, and random glucose 166. Urinalysis is negative. Toxicology screen; beta-hydroxybutyrate of 4.03, elevated. Influenza A and B negative. Microbiology, none reported. Chest electrocardiogram; normal sinus rhythm, normal electrical axis, and no ST-T changes. IMPRESSION: A 33-year-old morbidly obese male with history significant for hypertension and psoriasis, admitted with hyperglycemia and diabetic ketoacidosis. Diabetic ketoacidosis resolved on intravenous fluid and insulin drip, currently off the insulin drip, on metformin 500 mg p.o. twice daily, Januvia 100 mg daily, Accu-Chek with regular insulin, on moderate insulin scale. Wean off insulin as the blood sugar is better controlled. The patient is educated with moderate carbohydrate consistent diet and to be compliant with the antidiabetic medications, counseled regarding obesity and exercise for better control of blood sugar. The patient can be transferred out of ICU to regular floor. Fuad Gallagher MD
[2018-05-17 05:33] LABS: BASO # 0.1 K/uL (0.0-0.2); EOS # 0.2 K/uL (0.0-0.7); EOS % 3.7 % (0.0-4.0); HEMOGLOBIN 14.5 g/dL (12.0-18.0); LYMPH # 2.2 K/uL (1.0-4.3); LYMPH % 37.9 % (20.0-40.0); MEAN CELL VOLUME 80.3 fl (80.0-94.0); MEAN CORPUSCULAR HEMOGLOBIN 27.7 pg (27.0-31.0); MEAN CORPUSCULAR HGB CONC 34.5 g/dL (33.0-37.0); MONO # 0.4 K/uL (0.0-0.8); MONO % 6.9 % (0.0-10.0); NEUT # 2.9 K/uL (1.8-7.0); NEUT % 50.5 % (50.0-75.0); NRBC % 0.1 % (0.0-0.0); RBC 5.24 Mil/uL (4.40-5.90); RED CELL DISTRIBUTION WIDTH 13.8 % (11.5-14.5); WHITE BLOOD COUNT 5.7 K/uL (4.8-10.8)
[2018-05-17 06:03] LABS: ALB/GLOB RATIO 1.2 (1.0-2.1); ALBUMIN 3.7 g/dL (3.5-5.0); ALT/SGPT 90 U/L (21-72); AST/SGOT 73 U/L (17-59); BLOOD UREA NITROGEN 10 mg/dl (9-20); CALCIUM 9.5 mg/dL (8.4-10.2); GFR NON-AFRICAN AMERICAN > 60
[2018-05-17] MEDS: Insulin Regular 100 units/ml SC SCH ×2 (08:20→11:50)
[2018-05-17] MEDS: Enoxaparin 40 mg Syringe SC SCH (08:30)
[2018-05-17] MEDS: Betamethasone Dip 0.05% 15 GM TUBE TOP SCH ×2 (11:51→17:36)
--- NOTE | 2018-05-17 15:39 | CP.PCM.PN ---
Subjective - Date & Time of Evaluation Date of Evaluation: 05/16/18 Time of Evaluation: 09:45 - Subjective Subjective: HPI: Pt seen and assessed at bedside, reports no new complaints. Labs reviewed. At this time, the pt no longer needs insulin drip. Medically stable for transfer to med-surg. Subjective- Review of Systems: reviewed and no additional remarkable complaints. Objective- -Vital Signs Stable -Appears: Non-toxic, No Acute Distress. -Head Exam: NORMAL INSPECTION, normocephalic. -Eye Exam: Normal appearance, PERRLA, EOMI. -Respiratory Exam: NORMAL BREATHING PATTERN, breath sounds clear to auscultation. -Cardiovascular Exam: +S1, +S2, RRR. -GI & Abdominal Exam: Soft, non-tender, non-distended. -Neurological Exam: Alert, Awake, Oriented x3. -Psychiatric exam: Normal Affect, Normal Mood. Calm and cooperative. -Skin Exam: Normal Color, Warm, dry. Assessment/Impression/Plan 1.) DKA with hyperglycemia -Discontinued insulin drip. -Placed pt on metformin 500 mg BID and januvia 100 mg -GFR > 60; Anion Gap WNL. -pt on medium dose sliding scale with regular insulin coverage. -hgb a1c 10.4. -licensed veterinary technician saw and spoke to pt. -Stable for transfer to medical floor. Objective - Vital Signs/Intake and Output Vital Signs (last 24 hours): Temp Pulse Resp BP Pulse Ox 98.5 F 77 12 117/72 98 05/17/18 12:00 05/17/18 04:39 05/17/18 04:39 05/17/18 04:39 05/17/18 04:39 - Medications Medications: Current Medications Betamethasone Dipropionate (Diprolene) 1 applic TOP BID [facility] Last Admin: 05/17/18 11:51 Dose: Not Given Enoxaparin Sodium (Lovenox) 40 mg SC DAILY [facility]; Protocol Last Admin: 05/17/18 08:30 Dose: 40 mg Insulin Detemir (Levemir) 20 units SC [facility] Metformin HCl (Glucophage) 500 mg PO BIDWM [facility] Last Admin: 05/17/18 08:20 Dose: 500 mg Sitagliptin Phosphate (Januvia) 100 mg PO DAILY [facility] Last Admin: 05/17/18 08:21 Dose: 100 mg - Labs Labs: 05/17/18 04:50 05/17/18 04:50 Assessment and Plan (1) DKA (diabetic ketoacidoses) Status: Acute
--- NOTE | 2018-05-17 16:17 | CP.PCM.PN ---
Subjective - Date & Time of Evaluation Date of Evaluation: 05/17/18 Time of Evaluation: 11:00 - Subjective Subjective: patient seen and examined at bedside. Interim events noted No complaints offered at this time denies cp/sob/fever/chills. available diagnostic data reviewed Review of Systems All systems: reviewed and no additional remarkable complaints except mentioned above Objective Vital Signs Stable - Constitutional Appears: Non-toxic, No Acute Distress Head Exam: NORMAL INSPECTION Eye Exam: Normal appearance Respiratory Exam: NORMAL BREATHING PATTERN Cardiovascular Exam: +S1, +S2 GI & Abdominal Exam: Soft Neurological Exam: Alert, Awake Psychiatric exam: Normal Affect, Normal Mood Skin Exam: Normal Color, Warm Assessment and Plan monitor vitals monitor labs Cont meds Cont tx consult Dr. Andrade, endo consultants appreciated input rest of plan as ordered Objective - Vital Signs/Intake and Output Vital Signs (last 24 hours): Temp Pulse Resp BP Pulse Ox 98.5 F 77 12 117/72 98 05/17/18 12:00 05/17/18 04:39 05/17/18 04:39 05/17/18 04:39 05/17/18 04:39 Intake and Output: 05/17/18 05/17/18 06:59 18:59 Output Total 900 Balance -900 - Medications Medications: Current Medications Betamethasone Dipropionate (Diprolene) 1 applic TOP BID [facility] Last Admin: 05/17/18 11:51 Dose: Not Given Enoxaparin Sodium (Lovenox) 40 mg SC DAILY [facility]; Protocol Last Admin: 05/17/18 08:30 Dose: 40 mg Insulin Detemir (Levemir) 20 units SC [facility] Metformin HCl (Glucophage) 500 mg PO BIDWM [facility] Last Admin: 05/17/18 08:20 Dose: 500 mg Sitagliptin Phosphate (Januvia) 100 mg PO DAILY [facility] Last Admin: 05/17/18 08:21 Dose: 100 mg - Labs Labs: 05/17/18 04:50 05/17/18 04:50 Assessment and Plan (1) Diabetes mellitus, new onset Status: Acute (2) DKA (diabetic ketoacidoses) Status: Resolved
[2018-05-17] MEDS ORDERED: Insulin Detemir 100 Units/ml Inj SC SCH (22:00)
[2018-05-17 23:57] VITALS: TEMP 97.9
--- NOTE | 2018-05-18 00:50 | CON ---
DATE: 05/17/2018 ENDOCRINOLOGY CONSULTATION LOCATION: Room 657. He was initially admitted to ICU and seen today. HISTORY OF PRESENT ILLNESS: This is a 33-year-old male with generalized body weakness, presenting here with intractable vomiting and upper abdominal pain and evaluated for recent onset of uncontrolled type 2 insulin-requiring diabetes. He was initially admitted to ICU with a diagnosis of DKA, but actually he really was just only hyperosmolar on closer evaluation of his biochemical indices. PAST MEDICAL HISTORY: History of hypertension, on lisinopril, medications as given. History of generalized anxiety and depression, on Lexapro, taken as 20 mg once daily. FAMILY HISTORY: Strongly positive for diabetes in both maternal and paternal sides of the family. SOCIAL HISTORY: The patient is an active smoker, has supportive family, otherwise with no other known substance use. REVIEW OF SYSTEMS: As mentioned above. Admits to generalized body weakness with progressive bouts of dizziness and lightheadedness, worse on the day of admission. Also admits to bifrontal headaches with visual blurriness noted. He admits to marked polydipsia over the past week or so prior to admission. No chest pains or palpitations. His oral intake has been variable with nausea, dyspepsia and supervening diffuse upper abdominal pain with intractable vomiting episode a few days prior to admission. Also admits to marked polyuria and nocturia as noted. PHYSICAL EXAMINATION: GENERAL: This is an obese male, in no apparent distress. VITAL SIGNS: Blood pressure of 140/80, pulse of 100 beats per minute and regular, temperature 98, respirations 20. Height is 5 feet 6 inches. Weight is 284 pounds. HEENT: Head normocephalic. Eyes: Anicteric with pink conjunctivae. Funduscopy not possible at this time. Ears, nose and throat otherwise normal. NECK: Supple. Thyroid gland is normal in size. No carotid bruits or any cervical adenopathy. CARDIOPULMONARY: Some adynamic precordium. S1 and S2, is rapid and regular. LUNGS: Clear to auscultation. ABDOMEN: Flat and soft with positive bowel sounds. EXTREMITIES: No peripheral edema. Pulses are +2 bilaterally. LABORATORY DATA: His initial chemistry showed a BUN of 17, sodium 134, potassium 4.6, chloride 91, carbon dioxide is 19, glucose is 628, and creatinine is 1.1. Subsequent glucose levels ranged from 450 to 486 over 500 mg/dL. ASSESSMENT: This is a 33-year-old male with uncontrolled and decompensated type 2 insulin-requiring diabetes on recent evaluation and diagnosis, presenting here with hyperosmolar hyperglycemic state and mild ketosis or metabolic acidosis with dehydration and prerenal azotemia and spurious hyponatremia. He also has underlying morbid obesity, which would contribute to the increased insulin resistance and further impaired glucose tolerance thereof. PLAN OF MANAGEMENT: As discussed lengthily with the patient at bedside, imperative need for the initiation of at least basal insulin to lower the glucose toxicity at this time will be initiated, and we will start him with Levemir given as 20 units subcutaneous at bedtime daily to start tonight. We will continue the dual oral hypoglycemic drug therapy given in combination with metformin at 500 mg b.i.d. and Januvia at 100 mg once daily. We will initiate diabetic education and dietary instructions to include insulin self-administration and home glucose monitoring. We will also reinforce caloric restrictions and healthier food choices with weight loss efforts if at all possible. We will obtain serial chemistries and supplement accordingly as needed. We will follow. Carrie Andrade MD
[2018-05-18 06:56] LABS: ALB/GLOB RATIO 1.2 (1.0-2.1); ALBUMIN 4.5 g/dL (3.5-5.0); ALT/SGPT 130 U/L (21-72); AST/SGOT 92 U/L (17-59); BLOOD UREA NITROGEN 13 mg/dl (9-20); CALCIUM 9.9 mg/dL (8.4-10.2); GFR NON-AFRICAN AMERICAN > 60; HDL CHOLESTEROL 27 MG/DL (30-70)
[2018-05-18 07:06] LABS: LDL CHOLESTEROL 165 mg/dL (0-129)
[2018-05-18 08:26] VITALS: BP 125/90; PULSE 100; RESP 20; O2SAT 98
[2018-05-18] MEDS: Enoxaparin 40 mg Syringe SC SCH (08:43)
[2018-05-18] MEDS: Betamethasone Dip 0.05% 15 GM TUBE TOP SCH (08:43)
--- NOTE | 2018-05-18 15:09 | PN ---
DATE: 05/18/2018 ENDOCRINOLOGY FOLLOWUP NOTE LOCATION: Room 657. SUBJECTIVE: This is a 33-year-old male with recent uncontrolled type 2 insulin-requiring diabetes of recent onset and diagnosis, presenting here with hyperosmolar hyperglycemic state and dehydration and has since then improved clinically and metabolically, as noted thereof. His glucose levels are still fluctuating as expected overnight and glucose levels have ranged from 271 to 387 mg/dL. His A1c is elevated at 10.5%. LABORATORY DATA: His chemistries today showed a BUN of 13, sodium 139, potassium 4, chloride 103, CO2 of 23, glucose 267, and creatinine 0.8. His triglycerides are 307 with a cholesterol of 241. ASSESSMENT: This is a 33-year-old male with uncontrolled and decompensated type 2 insulin-requiring diabetes with marked hyperglycemic accelerations, presenting here with hyperosmolar hyperglycemic state and dehydration with mild ketosis and improved remarkably with vigorous intravenous hydration as given and intensive insulin therapy with an insulin drip infusion, as ordered. PLAN OF MANAGEMENT: The patient will clearly be insulin-requiring at this time and this was explained to the patient at bedside and he is amendable to at least taking only a bedtime insulin, which has been initiated from last night and given accordingly. However, looking at his prandial glucose accelerations today, he may clearly need a basal and bolus insulin regimen as ordered. However, his primary physician has opted to place him on oral hypoglycemic therapy given in combination as noted. He will clearly need a basal and bolus insulin drug combination to optimize metabolic control, especially with marked glucose toxicity as noted. The patient has opted just for basal insulin therapy for now as his primary physician will follow him on the outpatient and continue the combination of oral hypoglycemic therapy as ordered. We will recommend a higher dosing of the Levemir to optimize fasting glucose to at least 100 to 140 mg/dL. He will follow with his medical doctor accordingly. He will also continue the Januvia given as 100 mg daily and metformin at 500 mg b.i.d., as ordered. We will sign off from the diabetic and endocrine care at this time and he will follow with his medical doctor, Dr. Almanzar for ongoing outpatient medical and diabetic followup. Carrie Andrade MD [facility] # [id number]
[2018-05-19 11:37] LABS: C-PEPTIDE 2.62 ng/mL (0.80-3.85)
== END 2018-05-18 11:45 | disposition home or self-care (01) | DRG 295 ==
LOC: H.ER 17:24 → H.ERHOLD 19:58 → H.ICU/CCU 22:20 → H.MEDSURG1 05-17 15:40
PROVIDERS: ADMIT Family Medicine; ATTEND Family Medicine
DX: E11.10 Type 2 diabetes mellitus with ketoacidosis without coma (principal); E87.1 Hypo-osmolality and hyponatremia; E86.0 Dehydration; E11.00 Type 2 diabetes mellitus with hyperosmolarity without nonketotic hyperglycemic-hyperosmolar coma (NKHHC); I10 Essential (primary) hypertension; L40.9 Psoriasis, unspecified; E66.01 Morbid (severe) obesity due to excess calories; Z68.42 Body mass index [BMI] 45.0-49.9, adult; F41.1 Generalized anxiety disorder; K21.9 Gastro-esophageal reflux disease without esophagitis; E78.5 Hyperlipidemia, unspecified; F17.200 Nicotine dependence, unspecified, uncomplicated; Z79.4 Long term (current) use of insulin